=== PATIENT | male | born 1980 | race Caucasian/White ===

== ENCOUNTER → 2017-02-23 14:49 | Outpatient (CLI) | payer MEDICAID ==
[~2017-02-23 14:49] MED LIST: CATAPRES0.1 MG PO; GLYCOLAX527 GM PO; HYDROCODON-ACE1 EAC7 PO; IMITREX50 MG PO; NEURONTIN 300300 MG PO; OMEPRAZOLE20 M1 PO; VYVANSE40 MG PO; ZOLOFT50 MG PO
[2017-04-27 09:36] VITALS: BMI 29.7
== END | disposition home or self-care (01) ==
LOC: D.CT 02-21 14:30
DX: R10.9 Unspecified abdominal pain (principal)

== ENCOUNTER 2017-04-27 05:19 | Day surgery (SDC) | payer MEDICAID ==
[~2017-04-27] VITALS: Ht 180.3 cm; Wt 96.6 kg
[~2017-04-27 05:19] MED LIST changes: -HYDROCODON-ACE1 EAC7 PO
[2017-04-27 09:36] VITALS: BP 116/78; Ht 180.3 cm; Wt 96.6 kg
[2017-04-27] MEDS ORDERED: HYDROCODON-ACE1 EAC7 PO (11:23)
== END 2017-04-27 13:10 | disposition home or self-care (01) ==
LOC: D.OPS 05:19 → D.PAN 12:00 → D.OPS 13:10
DX: K81.1 Chronic cholecystitis (principal); Z01.812 Encounter for preprocedural laboratory examination

== ENCOUNTER 2017-05-08 09:18 | Emergency (ER) | payer MEDICAID ==
[2017-04-27 09:36] VITALS: BMI 29.7
[~2017-05-08 09:18] MED LIST changes: +HYDROCODON-ACE1 EAC7 PO
[2017-05-08 09:38] LABS: BASOPHILS 0.3 % (0-2); EOSINOPHILS 3.1 % (0-7); HEMATOCRIT 44.6 % (42.0-54.0); HEMOGLOBIN 15.7 g/dL (13.5-17.5); IMMATURE GRANULOCYTES 0.6 % (0-5); LYMPHOCYTES 23.1 % (15-50); MCH 33.2 pg (26.0-34.0); MCHC 35.2 g/dL (31.0-37.0); MCV 94.3 fL (80.0-100.0); MEAN PLATELET VOLUME 8.7 fL (7.4-10.4); MONOCYTES 11.1 % (2-11); NEUTROPHILS 61.8 % (40-80); PLATELET COUNT 346 10x3/uL (130-400); RBC 4.73 10x6/uL (4.20-6.10); RDW 12.8 % (11.5-14.5); WBC 17.8 10x3/uL (4.8-10.8)
[2017-05-08 09:54] LABS: ALBUMIN 3.8 g/dL (3.4-5.0); ALKALINE PHOSPHATASE 96 U/L (46-116); ALT (SGPT) 27 U/L (10-68); BILIRUBIN - TOTAL 0.16 mg/dL (0.2-1.3); CALC OSMOLALITY 278 mosm/kg (275-300); CALCIUM 8.9 mg/dL (8.5-10.1); CARBON DIOXIDE 27.9 mmol/L (21.0-32.0); CHLORIDE - SERUM 102 mmol/L (98-107); CREATININE - SERUM 0.9 mg/dL (0.6-1.3); GLUCOSE 103 mg/dL (74-106); POTASSIUM - SERUM 3.7 mmol/L (3.5-5.1); PROTEIN - SERUM 7.1 g/dL (6.4-8.2); SODIUM 139 mmol/L (136-145); UREA NITROGEN 14 mg/dL (7-18); eGFR NON AFRICAN AMERICAN > 90 mL/min (90-120)
[2017-05-08 10:35] LABS: APPEARANCE CLEAR (CLEAR); BILIRUBIN NEGATIVE (NEGATIVE); COLOR YELLOW (YELLOW); GLUCOSE NEGATIVE (NEGATIVE); KETONE NEGATIVE (NEGATIVE); NITRITE NEGATIVE (NEGATIVE); PROTEIN NEGATIVE (NEGATIVE); SPECIFIC GRAVITY 1.015 (1.005-1.020); UROBILINOGEN NORMAL (NORMAL)
[2017-05-08 10:38] LABS: BACTERIA FEW /hpf (NONE SEEN); EPITHELIAL CELLS NSEEN /hpf (0-5); RED CELLS - URINE 0-5 /hpf (0-5); WHITE CELLS - URINE 0-5 /hpf (0-5)
== END 2017-05-08 13:02 | disposition left against medical advice (07) ==
LOC: D.ER 09:18
PROVIDERS: Emergency Medicine
DX: K21.9 Gastro-esophageal reflux disease without esophagitis (principal)